=== PATIENT | male | born 1960 | race Caucasian/White ===

== ENCOUNTER 2017-04-07 20:30 | Emergency (ER) | payer MEDICARE, OTHER ==
[~2017-04-07] VITALS: Ht 175.3 cm; Wt 59.1 kg
[~2017-04-07 20:30] MED LIST: CARV25TA2 PO; FOLI0.8T6 PO; FURO-128 PO; PANT40TA2 PO; PRAV40TA PO; SODI650T PO; TAMS0.4C29 PO
[2017-04-07 20:36] VITALS: BP 240/80; PULSE 87; RESP 24; O2SAT 97
--- NOTE | 2017-04-07 20:47 | ED.REPORT ---
HPI-General Illness Date of Service April 07, 2017 ED Provider: Mark Rivera MD Patient is a 57 year old male with a hx of HTN and renal failure who presents to the ED complaining of intermittent R arm swelling s/p surgery for dialysis shunt 3 days ago. He denies extremity pain, fever, nausea, vomiting, or any other symptoms. He did not take his BP meds this morning. Nursing Notes Stated Complaint: RIGHT POST OP ARM SWELLING Chief Complaint: General Complaint Nursing Notes Reviewed: Yes Allergies: Coded Allergies: losartan (Verified Allergy, Severe, ANGIOEDEMA, 01/06/15) Penicillins (Verified Allergy, Intermediate, rash/hives, 01/06/15) Sulfa (Sulfonamide Antibiotics) (Verified Allergy, Intermediate, rash/ hives, 01/06/15) lisinopril (Unverified Allergy, Mild, angioedema, 01/06/15) Scheduled Carvedilol (Carvedilol) 25 Mg Tablet 25 MG PO BID Furosemide (Lasix) 40 Mg Tablet 60 MG PO DAILY Pantoprazole DR (Protonix) 40 Mg Tablet.dr 40 MG PO BID Pravastatin (Pravastatin) 40 Mg Tablet 40 MG PO DAILY Sodium Bicarbonate (Sodium Bicarbonate) 650 Mg Tablet 1,300 MG PO BID Tamsulosin ER (Tamsulosin ER) 0.4 Mg Cap.er.24h 0.4 MG PO DAILY Vitamin B Comp W-C/FA/Zn Cit (Dialyvite 800-Zinc 15 mg Tab) 1 Each Tablet 1 EACH PO DAILY General Time Seen by MD: 20:45 Chief Complaint Other (Swelling ) Hx Obtained From: Patient Arrived By: Walk-in Sudden in Onset?: Yes Recent Healthcare: Previous surgery Past Medical History Past Medical History Reports: COPD, Hyperlipidemia, Hypertension, Transient ischemic attack Reports: Renal failure Past Surgical History right carotid enterectomy, partial colonectomy, rt hernia Smoking History Current Every Day Smoker Social History Alcohol Use: "Social" Other Social History: Good social support Ambulatory Status Independent Review of Systems Full Review of Systems Constitutional: Denies: Fever GI: Denies: Nausea, Vomiting Musculoskeletal: Reports: Extremity swelling (R arm ), Denies: Extremity pain Complete sys rev & neg: except as marked. Physical Exam Vital Signs Vital Signs Date Time Temp Pulse Resp B/P Pulse Ox O2 Delivery O2 Flow Rate FiO2 04/07/17 22:54 36.6 86 24 218/76 96 Room Air 5/7/17 20:55 83 17 230/81 98 Room Air 04/07/17 20:36 36.7 87 24 240/80 97 Room Air Initial VS: Reviewed General/Constitutional: Well-developed, Well-nourished Head / Eyes: Atraumatic, Normocephalic Neck: Full range of motion Respiratory: No respiratory distress Cardiovascular: Intact distal pulses Abdomen / GI: Soft, Non-tender, No distention Skin: Warm, Dry Neurologic: Alert, Oriented, Nonfocal Psychiatric: Mood/affect normal, Behavior normal, Normal thought content Upper Extremities Right Forearm: Positive: Swelling present... (Mild) Interpretation & Diagnostics Lab Results Interpretation Lab Results Interpretation: US R ARM: NO DVT Re-Eval/Medical Decision Med Decision/Clinical Course 57-year-old male with recent right upper extremity dialysis catheter placement presenting with right upper extremity swelling earlier today which she reports is not baseline. It is mildly swollen. Ultrasound shows no DVT in the catheter is patent. No sign symptoms infection. Discharged home with parents. His primary doctor. Return precautions given. Time of Eval: 22:15 Re-Evaluation/Progress Note: Discussed plan for discharge. Patient understands and agrees with plan. All questions addressed at this time. Counseled Regarding: Diagnosis, Lab results, Need for follow-up, When/why to return to ED Discharge & Departure Primary Impression: Post-operative complication Surgical complication system/body Area: skin Surgical complication type: unspecified Procedure type: non-dermatologic Qualified Code: L76.82 - Other postprocedural complications of skin and subcutaneous tissue Additional Impression: Arm swelling Disposition: Home Discharge Condition All VS Reviewed: Yes Condition: Stable Additional Instructions: Thank you for entrusting us with your care. Your evaluation and ultrasound are reassuring. There is not a dangerous cause for your arm swelling at this time. Call your primary doctor tomorrow to schedule a follow up appointment for later this week. Return to the emergency department if you experience any symptoms or signs of infection including fever, chills, redness, nausea, or vomiting. Referrals: NOPCP (PCP) Scribe Attestation Portions of this note were transcribed by Lawanda Lafleur. I, Dr. Rivera personally performed the history, physical exam and medical decision-making; I reviewed and confirmed the accuracy of the information in the transcribed note. Signed by: Lawanda Lafleur 04/07/17, 2215 Mark Rivera MD April 07, 2017 20:47 LAWANDA LAFLEUR April 07, 2017 21:19
[2017-04-07 20:55] VITALS: BP 230/81; PULSE 83; RESP 17; O2SAT 98
[2017-04-07 22:54] VITALS: BP 218/76; PULSE 86; RESP 24; O2SAT 96
--- NOTE | 2017-04-08 08:06 | DRSVH ---
PROCEDURE: US VENOUS ARM DUPLEX UNILATERAL, RIGHT INDICATIONS: RUE swelling r/o dvt, recent dialysis catheter TECHNIQUE: Real-time imaging, as well as color and pulse Doppler interrogation, was performed of the right upper extremity deep veins from the inferior neck to the antecubital fossa. COMPARISON: None. FINDINGS: The internal jugular vein, visualized portions of the subclavian vein, axillary, and brach ial veins are free of intraluminal thrombus. Where physically possible, the veins are normally compr essible. Color and pulse Doppler demonstrate normal intraluminal flow, with expected phasicity and p ulsatility. Additional scanning of the cephalic and basilic veins of the superficial system demonstr ate normal compressibility, without thrombus. Right upper arm arteriovenous fistula is present which is incompletely evaluated. IMPRESSION: No venous thrombosis identified within the right upper extremity. Dictated by: Barrington LOPEZ Interpreted: Jennifer Madden MD on 04/08/2017 at 8:05 Transcribed by: EKTA on 04/08/2017 at 8:05 Approved by: Jennifer Madden M.D. on 04/09/2017 at 17:11
== END 2017-04-07 22:57 | disposition home or self-care (01) ==
LOC: SED 20:30
DX: L76.82 Other postprocedural complications of skin and subcutaneous tissue (principal); T82.898A Other specified complication of vascular prosthetic devices, implants and grafts, initial encounter; R22.31 Localized swelling, mass and lump, right upper limb; X58.XXXA Exposure to other specified factors, initial encounter; Y93.89 Activity, other specified; Y99.8 Other external cause status; Y92.89 Other specified places as the place of occurrence of the external cause; F17.210 Nicotine dependence, cigarettes, uncomplicated; J44.9 Chronic obstructive pulmonary disease, unspecified; I12.0 Hypertensive chronic kidney disease with stage 5 chronic kidney disease or end stage renal disease; N18.9 Chronic kidney disease, unspecified; E78.5 Hyperlipidemia, unspecified; Z86.73 Personal history of transient ischemic attack (TIA), and cerebral infarction without residual deficits; Z88.2 Allergy status to sulfonamides; Z88.8 Allergy status to other drugs, medicaments and biological substances; Z88.0 Allergy status to penicillin

== ENCOUNTER → 2017-06-07 | Day surgery (SDC) | payer MEDICARE, OTHER ==
--- NOTE | 2017-06-06 13:23 | PCM.HPANE ---
Patient Data Surgeon Admitting Provider: Attending Provider:Connor Serrano MD Primary Care Physician:Carlotta Jeffery MD Other Provider:[facility] An[facility] Reason for Visit Acute Blood Loss Anemia Ht/WT & BMI Body Mass Index Allergies Coded Allergies: losartan (Verified Allergy, Severe, ANGIOEDEMA, 01/06/15) Penicillins (Verified Allergy, Intermediate, rash/hives, 01/06/15) Sulfa (Sulfonamide Antibiotics) (Verified Allergy, Intermediate, rash/ hives, 01/06/15) lisinopril (Verified Allergy, Mild, angioedema, 06/06/17) Contrast Media (Verified Adverse Reaction, Unknown, 06/06/17) Pt has hx of kidney failure; pt requests no dyes. Past Anesthesia History Anesthesia History: Denies:: Abnormal Airway, Anesthesia Reactions, Difficult Intubation, Fam Anesthesia Reaction, Fam Malignant Hypertherm, Malignant Hyperthermia Diabetes History Hx Diabetes?: No MRSA MRSA: No Medications Blood Thinner: Aspirin Reported Medications Aspirin 81 Mg Hwkhyf19 Mg PO DAILY Ref 0 06/07/17 Albuterol Sulfate (Ventolin HFA Inhaler)200 Puff/18 Gm Inhaler2 Puff INH Q4 PRN For Wheezing #1 INHALER Ref 0 06/06/17 Hydralazine 25 Mg Umwtax78 Mg PO TID Ref 0 06/06/17 Vitamin B Comp W-C/FA/Zn Cit (Dialyvite 800-Zinc 15 mg Tab)1 Each Tablet1 Each PO DAILY 06/30/15 Sodium Bicarbonate 650 Mg Tablet1,300 Mg PO BID 12/27/14 Furosemide (Lasix)40 Mg Hcjcdh47 Mg PO DAILY 30 Days Ref 0 12/27/14 Carvedilol 25 Mg Myerlz85 Mg PO BID 30 Days Ref 0 06/15/14 Pravastatin 40 Mg Crafje03 Mg PO DAILY 30 Days Ref 0 06/15/14 Discontinued Reported Medications Tiotropium Plaza (Spiriva)18 Mcg Cap.w.dev18 Mcg IH DAILY #1 PKG Ref 0 06/06/17 Mometasone/Formoterol (Dulera 100 Mcg/5 Mcg Inhaler)13 Gm Hfa.aer.ad13 Gm IH 06/06/17 Tamsulosin ER 0.4 Mg Cap.er.24h0.4 Mg PO DAILY Ref 0 06/30/[address] (Protonix)40 Mg Tablet.dr40 Mg PO BID 30 Days Ref 0 06/15/14 History History of ENT Problems?: Yes HEENT History: Positive for:: Dysphagia (R/T medication reaction causing angioedema. ) Denies:: Cataracts Sinus Problem Denture Type: None Teeth Condition: Missing Teeth Hx of Heart Problems?: Yes Cardiovascular History: Positive for:: Congestive Heart Failure Heart Murmur (ECHO 2008) Hypertension (HYPERLIPIDEMIA HTN normal BP in the 200's) Denies:: Cardiac Surgery Chest Pain Edema Irregular Heartbeat (Hx palpitations. ) Pacemaker Thrombophlebitis Hx of Respiratory Problem?: Yes Respiratory History: Positive for:: COPD Cough Denies:: Asthma Chest Surgery Dyspnea Emphysema Hemoptysis Pneumonia Tuberculosis Use of C-PAP Machine (SNORES) Hx Neurologic Problems?: Yes Neurological History: Positive for:: CVA (TIA.) Denies:: Alzheimer's Disease Dementia Dizziness Headaches Parkinson's Disease Seizures Hx of GI Problems?: Yes Hx of Problems?: Yes Genitourinary History: Denies:: HX of Hemodialysis (HX CHRONIC RENAL FAILURE/ DIALYSIS ACCESS=CURRENT PROBLEM) Kidney Stones Urinary Tract Infection HX of Peritoneal Dialysis: No Male Hx: Denies:: Prostate Problems Scrotal Mass Testicular Surgery Skin History: Positive for:: History Skin Disorders? (RASHES) Denies:: Pressure Ulcers Hx Musculoskeletal Problems?: No Musculoskeletal History: Denies:: Back Injury Joint Replacement Musculoskeletal Trauma Hx of Psycho/Social Problems?: No Psycho Social History: Denies:: Anxiety Bipolar Disorder Hx Depression Suicide Attempt Hx Surgeries?: Yes (Right carotid endarterectomy, Partial colonectomy,RT HERNIA , RPR ) Hx Any Other Health Problems?: Yes Other History: Positive for:: Hospitalization Denies:: Cancer Endocrine Disease Thyroid Disease History Blood Transfusions: Denies:: Blood Transfusions Hx Diabetes: No Hx Alcohol Use: Yes (Occasionally)Hx Substance Use: No Smoking Status: Current Every Day Smoker Light Tobacco Smoker Have You Smoked inLast 12 mo: Yes Stop/Bang Risk Assessment Category Category 1A: Patient has history of documented sleep apnea, and HAS NOT received any narcotic, sedative or anesthesia administration during this stay. Category 1B: Patient has history of documented sleep apnea, and HAS received any narcotic , sedative or anesthesia administration during this stay Category 2: Patient has SUSPECTED Obstructive Sleep Apnea, and HAS received any narcotic , sedative or anesthesia administration during this stay. Category 3: Patient has SUSPECTED Obstructive Sleep Apnea and HAS NOT received narcotic, sedative or anesthesia administration during this stay. Category 4: Outpatient in Procedural Areas with known sleep apnea or who screen positive for High Risk via the STOP/BANG questionnaire. Exam Exam General Appearance: Alert, Oriented X3, Cooperative, Moderate Distress HEENT/AIRWAY: MP 2, Neck Movement (from), Mouth Opening (wnl) Lungs: Clear to Auscultation, Normal Air Movement Heart: Exam Unremarkable Plan Impression Patient chart reviewed, patient interviewed and anesthestic plan with risks, benefits, and alternatives discussed, and informed consent obtained. ASA Physical Status: ASA3 Severe Disease Anesthetic Plan: MAC Bene/Risks/Altern/Consents: Yes HP Complete Prior to Induction: Yes Samy Pollack MD Jun 06, 2017 13:23
[~2017-06-07] VITALS: Ht 175.3 cm; Wt 63.0 kg
[~2017-06-07] MED LIST changes: +ALBU18HF INH; +ASPI-973 PO; +HYDR-3939 PO; +Lactated Ringer's 1,000 ML IV ONE; +Lactated Ringer's 1,000 ML IV SCH; +MOME13HF2 IH; +MetoCLOpramide 5 mg/mL 2 mL Inj IVPUSH PRN; +Ondansetron 2 mg/mL 2 mL Inj IVPUSH PRN; +Propofol 10,000 mCg/mL 20 mL Inj ONE; +TIOT18CA3 IH; +fentaNYL-PF 50 mCg/mL 2 mL Inj ONE
[2017-06-07 12:13] VITALS: BP 147/64; PULSE 71; RESP 22; O2SAT 95
[2017-06-07 13:13] VITALS: BP 119/58; PULSE 67; RESP 14; O2SAT 94
--- NOTE | 2017-06-07 13:16 | PCM.ENDEGD ---
EGD Date of Service: Jun 07, 2017 Physician Connor Serrano MD Pre Procedure Diagnosis: anemia Post Procedure Dx & Findings: Esophagitis with scarring at the GE junction. Lumen wide open. Polypoid gastric mucosa. Duodenal inflammation with abdominal erosions. Procedure Esophagogastroduodenoscopy PROCEDURE IN DETAIL: After proper sedation, Olympus video endoscope was inserted into patient's mouth and esophagus was successfully intubated. Scope introduced esophagus. Esophagus showed normal shiny whitish mucosa consistent with squamous cell component. Z line was at 40 cm from the incisors. At the GE junction, some scarring and redness edema noted consistent with esophagitis. Biopsies obtained. Scope further advanced into the stomach. The fundus and the body showed polypoid mucosa. It was diffusely bumpy with prominent rugae folds. Biopsies are obtained. Cardia fundus body antrum pylorus were all visualized. Retroflexion was done. Stomach was easily inflated and deflatable using air. Scope further events to the distal duodenum. Duodenum revealed patchy irritation and inflammation and one part looked significantly inflamed with surface erosions. Biopsies obtained. Impression Esophagitis Polypoid gastric mucosa Duodenitis with erosions irritation. Recommendation Follow up in GI clinic Presedation Assessment Risks and Benefits Informed consent was obtained from the patient after all risks and benefits including but not limited to drug reaction, infection, pain, bleeding, perforation, as well as alternatives were discussed. Patient monitoring Continuous pulse oximetry, cardiac monitoring, blood pressure monitoring, IV access, and oxygen at 2L per nasal cannula. Complications There were no periprocedural complications identified. Post Procedure Plan Post Procedure Recommendations 1. Restrict activities today. 2. Resume normal activities in the morning. 3. Resume medications. 4. GERD behavioral modification: - Avoid fatty, acidic, spicy, large meals - Do not lie down after meals - Do not eat or drink anything for at least 2 1/2 hours before going to bed at night - Discontinue tobacco and alcohol - Decrease or avoid caffeine - Avoid chocolate and mints - Decrease weight - Avoid aspirin and non steroidal anti-inflammatory agents (NSAID) such as Aleve, Advil, Mobic, Naproxen, Ibuprofen, etc 5. Add proton pump inhibitor. Take 30 minutes before 1st meal of the day. 6. Patient informed of normal post procedure side effects as bloating, drowsiness, blood streaking in the stool 7. If gastric biopsy reveal H.pylori, continue with appropriate treatment 8. If small bowel biopsy reveals celiac, continue with appropriate treatment 9. Please don't hesitate to call me with any questions Connor Serrano MD Jun 07, 2017 13:16
[2017-06-07 13:23] VITALS: BP 104/49; PULSE 68; RESP 14; O2SAT 95
--- NOTE | 2017-06-07 13:28 | PCM.ANEP1 ---
Post Anesthesia PACU Phase 1 Assessment Vital Signs Vital Signs Date Time Temp Pulse Resp B/P Pulse Ox O2 Delivery O2 Flow Rate FiO2 06/07/17 12:13 36.1 71 22 147/64 95 Room Air Level of Alertness: Sleeping, hard to arouse SANCHEZ's with Equal Strength: Yes Pain: No Nausea or Vomiting: No CV Function & Hydration Stable: Yes Airway Device: Oxygen Delivery: Nasal Cannula Lungs: Normal Air Movement PACU Phase 2 Assessment Complications: No Follow up Care: No Patient Instructions Provided: N/A Samy Pollack MD Jun 07, 2017 13:28
[2017-06-07 13:33] VITALS: BP 102/50; PULSE 70; RESP 20; O2SAT 94
--- NOTE | 2017-06-13 09:32 | PATH ---
SURGICAL PATHOLOGY Attending Physician:Connor Serrano M.D. CASE STATUS: Signed Out PATIENT NAME: YARI TERRELL PID: [id number] : 1960 DATE COLLECTED:06/07/2017 00:00 SPECIMEN: 1: Duodenum, Biopsy 2: Stomach, Polyp, Biopsy 3: Esophagus, Biopsy CLINICAL HISTORY: 1). DUODENAL BIOPSIES 2). GASTRIC POLYPS BIOPSY 3). GE JUNCTION BIOPSY FINAL DIAGNOSIS: 1.DUODENAL BIOPSIES: DUODENAL MUCOSA WITH NO DIAGNOSTIC ALTERATIONS. Negative for inflammation, sprue, dysplasia, and malignancy. 2.GASTRIC POLYPS BIOPSY: FUNDIC GLAND POLYPS. Negative for Helicobacter organisms on H&E stains. Negative for intestinal metaplasia. Negative for dysplasia and malignancy. 3.GE JUNCTION BIOPSY: SQUAMOCOLUMNAR MUCOSA WITH MILD REFLUX-RELATED CHANGES. Negative for intestinal/Jacobs' s metaplasia. Negative for dysplasia and malignancy. ICD10 K31.7 K21.9 GROSS DESCRIPTION: Received are three formalin-filled containers, each labeled with the patient' s name. 1. Received in formalin, labeled with the patient' s name and "duodenal biopsy", is one fragment of saenz, soft tissue measuring 0.3 x 0.2 x 0.2 cm. The fragment is totally submitted in cassette 1A. 2. Received in formalin, labeled with the patient' s name and "gastric polyps", are three fragments of saenz, soft tissue ranging in size from 0.1 x 0.1 x 0.1 cm to 0.2 x 0.2 x 0.1 cm. All fragments are totally submitted in cassette 2A. 3. Received in formalin, labeled with the patient' s name and "GE junction BX", is one fragment of saenz, soft tissue measuring 0.1 x 0.1 x 0.1 cm. The fragment is totally submitted in cassette 3A. ([id number]) MICRO DESCRIPTION: See diagnosis. ICD-9 CODES: CPT CODES: 1: 54730 2: 65222 3: 44364 Electronically Signed Out Nita العلي MD [facility] [address], [place] [address] Technical component performed at [facility], [address], [place], [address]
== END | disposition home or self-care (01) ==
LOC: END 00:29
PROVIDERS: ATTEND Internal Medicine
DX: K31.7 Polyp of stomach and duodenum (principal); K21.9 Gastro-esophageal reflux disease without esophagitis; D62 Acute posthemorrhagic anemia; I12.0 Hypertensive chronic kidney disease with stage 5 chronic kidney disease or end stage renal disease; E78.5 Hyperlipidemia, unspecified; I25.10 Atherosclerotic heart disease of native coronary artery without angina pectoris; N18.6 End stage renal disease; J44.9 Chronic obstructive pulmonary disease, unspecified; F17.210 Nicotine dependence, cigarettes, uncomplicated; Z99.2 Dependence on renal dialysis; Z86.73 Personal history of transient ischemic attack (TIA), and cerebral infarction without residual deficits; Z79.82 Long term (current) use of aspirin
CPT/HCPCS: 43239; J3010; J7120